=== PATIENT | female | born 1965 | race African-American/Black ===

== ENCOUNTER 2016-06-09 14:31 | Emergency (ER) | payer OTHER ==
[2016-06-09 14:49] VITALS: BP 150/77; PULSE 93; TEMP 98; BMI 51.0
--- NOTE | 2016-06-09 14:52 | PDOC ---
Rapid Medical Evaluation Chief Complaint: Injury Medical Evaluation: Allergies Allergy/AdvReac Type Severity Reaction Status Date / Time Penicillins Allergy UNKNOWN Verified 09/08/15 19:38 06/09/16 14:47 Inversion injury to right ankle last PM- was jumping and fell- took Tylenol with no relief. Has been using Ice and vijay Wrap,. Swelling and pain- no previous injury. Hx of Tubal Ligation- 12/28 pain, VSS 06/09/16 14:50 06/09/16 14:51 06/09/16 14:52
--- NOTE | 2016-06-09 15:43 | PDOC ---
History of Present Illness - General Chief Complaint: Injury Stated Complaint: RIGHT ANKLE INJURY Time Seen by Provider: 06/09/16 15:29 - History of Present Illness Initial Comments: 06/09/16 15:43 CHIEF COMPLAINT: Ankle injury HISTORY OF PRESENT ILLNESS: This is a 51 year old female with a history of HTN, hypercholesterolemia, asthma, and GERD who presents complaining of right ankle pain and swelling after she jumped and inverted her ankle yesterday. Some relief with Tylenol. Limited weight-bearing. REVIEW OF SYSTEMS: GENERAL/CONSTITUTIONAL: No fever or chills. No weakness. No weight change. HEAD, EYES, EARS, NOSE AND THROAT: No change in vision. No ear pain or discharge. No sore throat. CARDIOVASCULAR: No chest pain or palpitations. RESPIRATORY: No cough, wheezing, or shortness of breath. MUSCULOSKELETAL: See HPI. SKIN: No rash or easy bruising. NEUROLOGIC: No headache, vertigo, loss of consciousness, or loss of sensation. ALLERGIC/IMMUNOLOGIC: No hives or skin allergy. No latex allergy. PHYSICAL EXAM: GENERAL: The patient is awake, alert, and fully oriented, in no acute distress. ENT: Pupils equal, round and reactive to light, extraocular movements intact, sclera anicteric, conjunctiva clear. Neck supple. LUNGS: Clear to auscultation bilaterally. Normal excursion. No respiratory distress or use of accessory muscles. CV: RRR, S1/S2, no MRG. Cap refill < 2 sec. ABDOMEN: Soft, non-distended, non-tender. EXTREMITIES: Edema and tenderness at right medial malleolus. NEUROLOGICAL: Normal speech. CN II-XII grossly intact. PSYCH: Normal mood, normal affect. SKIN: Warm, dry, normal turgor, no rashes or lesions noted. Past History - Past Medical History Allergies/Adverse Reactions: Allergies Allergy/AdvReac Type Severity Reaction Status Date / Time Penicillins Allergy UNKNOWN Verified 06/09/16 14:49 Home Medications: Ambulatory Orders Aspirin [ASA -] 81 mg PO DAILY 05/26/14 Atorvastatin Ca [Lipitor] 10 mg PO HS 05/26/14 Esomeprazole Mag Trihydrate [Nexium] 20 mg PO DAILY 05/26/14 Lisinopril [Prinivil] 25 mg PO DAILY 05/26/14 Montelukast Na [Singulair -] 10 mg PO HS 05/26/14 Albuterol Sulfate Inhaler - [Ventolin HFA Inhaler -] 2 inh PO Q4H #1 inh Baclofen 10 mg PO ASDIR 06/09/16 Gabapentin 300 mg PO ASDIR 06/09/16 Metformin HCl 500 mg PO ASDIR 06/09/16 Metolazone 5 mg PO ASDIR 06/09/16 Naproxen [Naprosyn -] 500 mg PO BID #14 tablet 06/09/16 Omeprazole 20 mg PO ASDIR 06/09/16 Asthma: Yes Diabetes: Yes GI Disorders: Yes (ACID REFLUX) HTN: Yes Hypercholesterolemia: Yes Suicide Attempt (Hx): No - Immunization History Td Vaccination: Yes Immunization Up to Date: Yes - Psycho/Social/Smoking Cessation Hx Anxiety: No Suicidal Ideation: No Smoking Status: No Smoking History: Never smoked Years of Tobacco Use: 0 Have you smoked in the past 12 months: No Number of Cigarettes Smoked Daily: 0 Cigars Per Day: 0 Hx Alcohol Use: No Drug/Substance Use Hx: No Substance Use Type: None Hx Substance Use Treatment: No *Physical Exam - Vital Signs Last Vital Signs Temp Pulse Resp BP Pulse Ox 98.0 F 93 H 20 150/77 99 06/09/16 14:44 06/09/16 14:44 06/09/16 14:44 06/09/16 14:44 06/09/16 14:44 Medical Decision Making - Medical Decision Making 06/09/16 16:07 A/P: 51 year old female with right ankle injury, sprain vs. fracture. 1. Naproxen 500mg PO 2. Ankle/foot xray 3. Splint/crutches 06/09/16 16:31 Xray reviewed: bimalleolar swelling with slightly widened mortise; also noted on prior xray of 08/2015. No gross fracture identified. *DC/Admit/Observation/Transfer Diagnosis at time of Disposition: Ankle sprain Qualifiers: Encounter type: initial encounter Involved ligament of ankle: unspecified ligament Laterality: right Qualified Code(s): S93.401A - Sprain of unspecified ligament of right ankle, initial encounter - Discharge Dispostion Disposition: HOME Condition at time of disposition: Stable Admit: No - Referrals Referrals: Sal Ruiz MD [Staff Physician] - Call tomorrow - Patient Instructions Printed Discharge Instructions: DI for Ankle Sprain Additional Instructions: -Rest with your foot elevated above the level of your heart -Apply ice for 15 minutes at a time at least 5 times daily -Take Naproxen as prescribed for pain and inflammation -Use crutches and limit weight-bearing -Follow up with the orthopedist (referral enclose) -Return here for any new or concerning symptoms
[2016-06-09] MEDS ORDERED: NAPROXEN 500 MG TABLET (FP) PO ONE (15:44)
[2016-06-09] MEDS ORDERED: NAPROXEN 500 MG TABLET (FP) ONE (15:49)
[2016-06-09] MEDS ORDERED: OXYCODONE/APAP 5/325MG COMBO TABLET PO ONE (16:34)
[2016-06-09] MEDS ORDERED: OXYCODONE/APAP 5/325MG COMBO TABLET ONE (16:45)
== END 2016-06-09 16:55 | disposition home or self-care (01) ==
LOC: JERFT 14:31 → JER 14:31 → JERFT 16:55
DX: S93.401A Sprain of unspecified ligament of right ankle, initial encounter (principal); X58.XXXA Exposure to other specified factors, initial encounter; Y93.39 Activity, other involving climbing, rappelling and jumping off; Y92.9 Unspecified place or not applicable
CPT/HCPCS: 73610-TC-RT; 73630-TC-RT; 99281-25

== ENCOUNTER 2016-11-15 11:21 | Emergency (ER) | payer OTHER ==
[2016-11-15 11:29] VITALS: BP 143/94; PULSE 92; TEMP 98; BMI 51.0
[2016-11-15] MEDS ORDERED: KETOROLAC TROMETHAMINE 60 MG/2 ML VIAL IM ONE (13:10)
[2016-11-15] MEDS ORDERED: KETOROLAC TROMETHAMINE 60 MG/2 ML VIAL ONE (13:13)
--- NOTE | 2016-11-15 13:18 | PDOC ---
History of Present Illness - General Chief Complaint: Pain Stated Complaint: INJURY Time Seen by Provider: 11/15/16 12:49 History Source: Patient Exam Limitations: No Limitations - History of Present Illness Initial Comments: 11/15/16 13:13 Patient was vacuuming at home, tripped and fell forward falling onto her left and right knees, states felt a pop and has worse pain and swelling on her left leg. States also banged her head on the side of the table but there was no LOC, and no significant head injury. Patient is here with significant pain to knees, she feels bilateral knees but worse on the left. , Is involved with the pain management program for chronic low back pain, takes for Percocets daily. States this pain is not from her back but this acute injury sustained to her knees. 11/15/16 13:19 11/15/16 15:07 Occurred: reports: just prior to arrival Severity: reports: moderate, severe Pain Location: reports: lower extremity (bilateral knees ) Method of Injury: Yes: direct blow, fall Modifying Factors: improves with: None Loss of Consciousness: no loss of consciousness Associated Symptoms (Fall): denies symptoms Past History - Travel Traveled outside of the country in the last 30 days: No Close contact w/someone who was outside of country & ill: No - Past Medical History Allergies/Adverse Reactions: Allergies Allergy/AdvReac Type Severity Reaction Status Date / Time Penicillins Allergy UNKNOWN Verified 11/15/16 11:29 Home Medications: Ambulatory Orders Aspirin [ASA -] 81 mg PO DAILY 05/26/14 Atorvastatin Ca [Lipitor] 10 mg PO HS 05/26/14 Esomeprazole Mag Trihydrate [Nexium] 20 mg PO DAILY 05/26/14 Lisinopril [Prinivil] 25 mg PO DAILY 05/26/14 Montelukast Na [Singulair -] 10 mg PO HS 05/26/14 Albuterol Sulfate Inhaler - [Ventolin HFA Inhaler -] 2 inh PO Q4H #1 inh Baclofen 10 mg PO ASDIR 06/09/16 Gabapentin 300 mg PO ASDIR 06/09/16 Metformin HCl 500 mg PO ASDIR 06/09/16 Metolazone 5 mg PO ASDIR 06/09/16 Naproxen [Naprosyn -] 500 mg PO BID #14 tablet 06/09/16 Omeprazole 20 mg PO ASDIR 06/09/16 Oxycodone HCl/Acetaminophen [Percocet 5-325 mg Tablet] 1 tab PO Q6H PRN #8 tablet MDD 4 06/09/16 Oxycodone HCl/Acetaminophen [Percocet 5-325 mg Tablet -] 1 - 2 tab PO Q4H PRN # 10 tablet MDD 4 11/15/16 Asthma: Yes Diabetes: Yes GI Disorders: Yes (ACID REFLUX) HTN: Yes Hypercholesterolemia: Yes Suicide Attempt (Hx): No - Immunization History Td Vaccination: Yes Immunization Up to Date: Yes - Psycho/Social/Smoking Cessation Hx Anxiety: No Suicidal Ideation: No Smoking Status: No Smoking History: Never smoked Years of Tobacco Use: 0 Have you smoked in the past 12 months: No Number of Cigarettes Smoked Daily: 0 Cigars Per Day: 0 Information on smoking cessation initiated: No Hx Alcohol Use: No Drug/Substance Use Hx: No Substance Use Type: None Hx Substance Use Treatment: No Trauma Specific PMHX - Complaint Specific PMHX Back Injury: No Neck Injury: No Review of Systems - Review of Systems Able to Perform ROS?: Yes Is the patient limited Chadian proficient: Yes Constitutional: Yes: Symptoms Reported, See HPI, Malaise HEENTM: Yes: Symptoms Reported Musculoskeletal: Yes: Symptoms Reported, See HPI, Joint Pain, Joint Swelling ( left nee ) Neurological: Yes: Symptoms reported, See HPI All Other Systems: Reviewed and Negative *Physical Exam - Vital Signs Last Vital Signs Temp Pulse Resp BP Pulse Ox 98 F 92 H 18 143/94 100 11/15/16 11:27 11/15/16 11:27 11/15/16 11:27 11/15/16 11:27 11/15/16 11:27 - Physical Exam General Appearance: Yes: Nourished, Appropriately Dressed, Apparent Distress, Moderate Distress, Severe Distress (crying ) HEENT: positive: CAROL, Normal ENT Inspection, TMs Normal, Pharynx Normal Neck: positive: Tender, Supple Respiratory/Chest: positive: Lungs Clear, Normal Breath Sounds Musculoskeletal: positive: Normal Inspection Extremity: positive: Tender. negative: Normal Capillary Refill, Normal Range of Motion (limited range of motion secondary to exquisite pain. Unable to flex and extend knee and very painful to bear weight, left worse than right. Pulses are palpable but pain is reproduced primarily left re-tibial at the superior aspect. 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 Ruiz able to evaluate patient while in emergency department, reviewed CAT scan report, and ensured patient x-rays did not reveal fracture but had probable ligamentous injury with extensive arthritis. Will see her in his office this week and recommended elevation rest pain management and further evaluation. Medical Decision Making - Medical Decision Making 11/15/16 14:29 medicated with Toradol 60 mg IM with minimal relief. Patient with exquisite pain bilateral knees, return from x-ray which did not reveal any significant pathology except possible pretibial spinal fracture indicating a questionable ACL injury. Patient's pain is out of proportion to x-ray reports therefore will obtain CAT scan of left knee to rule out a tibial plateau fracture or other injury. Patient given Percocet and sent for CAT scan *DC/Admit/Observation/Transfer Diagnosis at time of Disposition: Knee pain, chronic Qualifiers: Laterality: bilateral Qualified Code(s): M25.561 - Pain in right knee; M25.562 - Pain in left knee; G89.29 - Other chronic pain - Discharge Dispostion Disposition: HOME Condition at time of disposition: Stable Admit: No - Referrals Referrals: Sal Ruiz MD [Staff Physician] - - Patient Instructions Printed Discharge Instructions: DI for Knee Pain Additional Instructions: Rest, ice to area on and off for 15 minutes 4-6 times a day Avoid heavy lifting or exercise until pain and swelling is resolved or until further directed Keep area highly elevated to reduce swelling Use splints/Jack wrap as directed Followup with orthopedist in one to 2 days - call for appointment next few days if significantly improved may wait one week for followup with orthopedist May use ibuprofen 2-200 mg tablets every 6 hours as needed for pain May use Percocet for severe pain - Post Discharge Activity Work/School Note: Back to Work
--- NOTE | 2016-11-15 22:00 | CONS ---
ORTHOPEDIC EMERGENCY ROOM CONSULTATION/[facility] DATE OF CONSULTATION: 11/15/2016 HISTORY: Patient is a 51-year-old female who slipped and fell at home, injuring her right knee today, complaining of difficulty ambulating. Prior to the fall, the patient was told that she had significant arthritis in both her knees by her PMD, but really has done nothing about them. PHYSICAL EXAMINATION: General: The patient is overweight. Extremities: As far as her knee is concerned, she has no effusion, no ecchymosis. Good stability to varus and valgus stress. There is negative Anni, pivot shift, anterior and posterior drawer. She has some patellar facet tenderness and is able to straight leg raise. No defects in the extensor mechanism. She is neurovascularly intact. She does have significant pain with flexion and extension. DIAGNOSTICS: X-rays, which I reviewed today from the emergency room, including the CT scan which was read by the radiologist potentially of a fracture, to my evaluation failed to show any fracture, but significant diffuse arthritis throughout. No fracture, dislocation, lytic or blastic lesions. IMPRESSION: Significant contusion superimposed on preexisting severe degenerative joint disease in bilateral knees in an otherwise relatively healthy, but obese 51-year-old female. PLAN: RICE, antiinflammatories. Follow up in my office where we can consider treatment for arthritis at a later date and potentially therapy, injections, and at some point total knee replacement. JOHNATHAN CALLAHAN M.D. [id number]
== END 2016-11-15 16:21 | disposition home or self-care (01) ==
LOC: JERFT 11:21
DX: S09.8XXA Other specified injuries of head, initial encounter (principal); M25.561 Pain in right knee; M25.562 Pain in left knee; W18.09XA Striking against other object with subsequent fall, initial encounter; Y93.E3 Activity, vacuuming; Y92.038 Other place in apartment as the place of occurrence of the external cause
CPT/HCPCS: 73562-TC-LT; 73562-TC-RT; 73700-TC-RT; 99281-25

== ENCOUNTER 2018-04-24 21:49 | Emergency (ER) | payer OTHER ==
[2018-04-24] MEDS ORDERED: IBUPROFEN 600 MG TABLET (FP) PO ONE ×3 (21:59→23:48)
--- NOTE | 2018-04-24 21:59 | PDOC ---
Rapid Medical Evaluation Time Seen by Provider: 04/24/18 21:55 Medical Evaluation: Allergies Allergy/AdvReac Type Severity Reaction Status Date / Time Penicillins Allergy UNKNOWN Verified 11/15/16 11:29 04/24/18 21:58 chief complaint: right sided chest pain since today with nausea. Reports pain in right chest radiating under right breast. worse with moving. Denies shortness of breath or dizziness PE: + tenderness in right chest crying in triage even clear lungs Plan ekg and analgesia
[2018-04-24 22:10] VITALS: BP 124/96; PULSE 103; TEMP 98.1; BMI 47.2
[2018-04-25] MEDS ORDERED: FAMOTIDINE 20 MG/50 ML IVPB 20 MG/50 ML MG IVPB ONE ×2 (00:03→00:47)
[2018-04-25] MEDS ORDERED: ONDANSETRON 4 MG/2 ML VIAL IVPB ONE (00:03)
[2018-04-25] MEDS ORDERED: MAG HYDROX/AL HYDROX/SIMETH 30 ML UNIT-DOSE CUP PO ONE (00:26)
--- NOTE | 2018-04-25 00:29 | PDOC ---
History of Present Illness - General Chief Complaint: Chest Pain Stated Complaint: CHEST HURTING Time Seen by Provider: 04/24/18 21:55 History Source: Patient Exam Limitations: No Limitations - History of Present Illness Initial Comments: 04/25/18 00:27 Pt is a 52yo F with PMH of Asthma, HTN, DM, HLD, GERD presenting to ED with complaints of chest pain, nausea and one episode of emesis yesterday. Pt states the pain is in the middle of her chest, comes and goes, feels like a burning, sharp pain, radiates to the R breast and upper abdomen. Associated with nausea. She denies diarrhea, constipation, fevers, chills, congestion, sore throat, sob , palpitations. She and her son went to [employer] 3 days ago and her son has similar symptoms today. Last BM yesterday. No recent travel, no abdominal surgeries. Allergies: PCN Past History - Past Medical History Allergies/Adverse Reactions: Allergies Allergy/AdvReac Type Severity Reaction Status Date / Time Penicillins Allergy UNKNOWN Verified 04/24/18 21:58 Home Medications: Ambulatory Orders Aspirin [ASA -] 81 mg PO DAILY 05/26/14 Atorvastatin Ca [Lipitor] 10 mg PO HS 05/26/14 Esomeprazole Mag Trihydrate [Nexium] 20 mg PO DAILY 05/26/14 Lisinopril [Prinivil] 25 mg PO DAILY 05/26/14 Montelukast Na [Singulair -] 10 mg PO HS 05/26/14 Albuterol Sulfate Inhaler - [Ventolin HFA Inhaler -] 2 inh PO Q4H #1 inh Baclofen 10 mg PO ASDIR 06/09/16 Gabapentin 300 mg PO ASDIR 06/09/16 Metolazone 5 mg PO ASDIR 06/09/16 Naproxen [Naprosyn -] 500 mg PO BID #14 tablet 06/09/16 Omeprazole 20 mg PO ASDIR 06/09/16 Oxycodone HCl/Acetaminophen [Percocet 5-325 mg Tablet] 1 tab PO Q6H PRN #8 tablet MDD 4 06/09/16 metFORMIN HCL [Metformin HCl] 500 mg PO ASDIR 06/09/16 Oxycodone HCl/Acetaminophen [Percocet 5-325 mg Tablet] 1 - 2 tab PO Q4H #7 tablet MDD 4 11/15/16 Dicyclomine HCl [Bentyl -] 10 mg PO DAILY #5 capsule 04/25/18 Ondansetron [Zofran -] 4 mg PO BID #10 tablet 04/25/18 Asthma: Yes COPD: No Diabetes: Yes GI Disorders: Yes (ACID REFLUX) HTN: Yes Hypercholesterolemia: Yes - Immunization History Td Vaccination: Yes Immunization Up to Date: Yes - Suicide/Smoking/Psychosocial Hx Smoking Status: No Smoking History: Never smoked Years of Tobacco Use: 0 Have you smoked in the past 12 months: No Number of Cigarettes Smoked Daily: 0 Cigars Per Day: 0 Hx Alcohol Use: No Drug/Substance Use Hx: No Substance Use Type: None Hx Substance Use Treatment: No *Physical Exam - Vital Signs Last Vital Signs Temp Pulse Resp BP Pulse Ox 98.1 F 103 H 18 124/96 100 04/24/18 21:55 04/24/18 21:55 04/24/18 21:55 04/24/18 21:55 04/24/18 21:55 Moderate Sedation - Procedure Monitoring Vital Signs: Procedure Monitoring Vital Signs Temperature 98.1 F 04/24/18 21:55 Pulse Rate 103 H 04/24/18 21:55 Respiratory Rate 18 04/24/18 21:55 Blood Pressure 124/96 04/24/18 21:55 O2 Sat by Pulse Oximetry (%) 100 04/24/18 21:55 ED Treatment Course - LABORATORY CBC & Chemistry Diagram: 04/25/18 00:22 04/25/18 00:22 - RADIOLOGY Radiology Studies Ordered: Category Date Time Status CHEST PA & LAT [RAD] Stat Radiology 04/25/18 00:02 Ordered - Medications Given in the ED: ED Medications Discontinued Medications Generic Name Dose Route Start Last Admin Trade Name Freq PRN Reason Stop Dose Admin Ibuprofen 600 mg 04/24/18 22:00 04/24/18 23:58 Motrin - PO 04/24/18 22:01 600 mg ONCE ONE Administration Medical Decision Making - Medical Decision Making 04/25/18 02:09 Pt is a 52yo F with PMH of Asthma, HTN, DM, HLD, GERD presenting to ED with complaints of chest pain, nausea and one episode of emesis yesterday. Pt states the pain is in the middle of her chest, comes and goes, feels like a burning, sharp pain, radiates to the R breast and upper abdomen. Associated with nausea. She denies diarrhea, constipation, fevers, chills, congestion, sore throat, sob , palpitations. She and her son went to [employer] 3 days ago and her son has similar symptoms today. Last BM yesterday. No recent travel, no abdominal surgeries. Vitals: slight tachycardia otherwise wnl PE: epigastic tenderness>RUQ tenderness, positive quiñonez's sign, substernal tenderness. Normal heart sounds, lungs cta. ddx includes but not limited to gastritis, pancreatitis, cholecystitis, gastritis, ACS -cbc, cmp, lipase, troponin ordered. -EKG done in triage. -iv fluids, zofran, pepcid, maalox, bentyl, IV tylenol. -U/S. -Labs wnl. ALkP slightly elevated. Normal lipase, normal white count. Pt states feeling better. Will give Rx for bentyl and zofran. U/S negative for cholecystitis or choledocolithiasis. Fatty liver. PT most likely has viral gastritis or food poisoning. Has been tolerating PO at home, is afebrile, symptoms well controlled. Will DC home. Given return precautions. *DC/Admit/Observation/Transfer Diagnosis at time of Disposition: Nausea, Epigastric abdominal pain Chest pain Qualifiers: Chest pain type: unspecified Qualified Code(s): R07.9 - Chest pain, unspecified - Discharge Dispostion Disposition: HOME Condition at time of disposition: Improved Decision to Admit order: No - Prescriptions Prescriptions: Dicyclomine HCl [Bentyl -] 10 mg PO DAILY #5 capsule Ondansetron [Zofran -] 4 mg PO BID #10 tablet - Referrals Referrals: Micaela Gross MD [Primary Care Provider] - - Patient Instructions Printed Discharge Instructions: DI for Abdominal Pain-Adult, DI for Atypical Chest Pain Additional Instructions: You were seen in the emergency room today for abdominal pain, chest pain and nausea. The blood work was normal. You most likely have a stomach virus or food poisoning. Please keep yourself well hydrated. You can take over the counter Maalox to help with the spams. Take the Nexium as directed. I would recommend staying away from solid foods. Stick to a liquid diet and if you tolerate that then move on to soft solids like bananas, applesauce, toast and rice. Two prescriptions were sent to your pharmacy. One is Zofran (for nausea) and one is Bentyl to help with the esophogeal spasms. Take as directed. Make sure to visit your primary care doctor sometime this week. Come back to the emergency room if pain gets worse, you start vomiting blood, there is blood in the stool, you develop fever, you are unable to drink or eat anything or if any new concerning symptom develops. Thank you - Post Discharge Activity
[2018-04-25] MEDS ORDERED: ONDANSETRON 4 MG/2 ML VIAL ONE (00:47)
[2018-04-25] MEDS ORDERED: MAG HYDROX/AL HYDROX/SIMETH 30 ML UNIT-DOSE CUP ONE (00:47)
[2018-04-25 00:49] LABS: BASO % 1.4 % (0-2.0); EOS % 3.1 % (0-4.5); HEMATOCRIT 36.2 % (32.4-45.2); HEMOGLOBIN 12.1 GM/dL (10.7-15.3); LYMPH % 30.4 % (8-40); MCH 28.2 pg (25.7-33.7); MCHC 33.3 g/dl (32.0-36.0); MEAN CELL VOLUME 84.7 fl (80-96); MEAN PLT VOLUME 8.4 fl (7.5-11.1); MONO % 7.3 % (3.8-10.2); NEUT % 57.8 % (42.8-82.8); PLATELET COUNT 423 K/MM3 (134-434); RBC 4.28 M/mm3 (3.60-5.2); RDW 15.5 % (11.6-15.6); WHITE BLOOD COUNT 8.3 K/mm3 (4.0-10.0)
[2018-04-25] MEDS ORDERED: ACETAMINOPHEN 1000 MG/100 ML VIAL (NON FORMULARY) IVPB ONE (01:04)
[2018-04-25 01:09] LABS: INR 1.18 (0.83-1.09); PROTHROMBIN TIME (PATIENT) 13.9 SEC (9.7-13.0)
[2018-04-25] MEDS ORDERED: DICYCLOMINE HCL 10 MG CAPSULE PO ONE (01:10)
--- NOTE | 2018-04-25 01:10 | PDOC ---
Attending Attestation - HPI HPI: 04/25/18 01:28 The patient is a 52 year old female, with a significant past medical history of Asthma, HTN, DM, HLD, GERD , who presents to the emergency department with, spastic epigastric pain with associated nausea. She denies recent fevers, chills, headache or dizziness. She denies recent dysuria, frequency, urgency or hematuria. She denies recent chest pain or shortness of breath. Allergies: Penicillins. Primary Care Physician: Dr. Gross - Physicial Exam PE: 04/25/18 01:29 GENERAL: Well-appearing, well-nourished. No apparent distress. HEENT: Normocephalic, atraumatic. PERRL, EOM intact. CARDIOVASCULAR: Normal S1, S2. Regular rate and rhythm. PULMONARY: Clear to auscultation bilaterally. ABDOMEN: Protuberant. Reproducible epigastric and chest tenderness. Soft, non-distended. EXTREMITIES: Normal ROM in all four extremities. No gross deformities. SKIN: Warm, dry. No rash NEUROLOGICAL: No focal neurological deficits. <Aaliyah Stallings - Last Filed: 04/25/18 01:28> - Resident Resident Name: Madisyn Astudillo - ED Attending Attestation I have performed the following: I have examined & evaluated the patient, The case was reviewed & discussed with the resident, I agree w/resident's findings & plan, Exceptions are as noted - Medical Decision Making 04/25/18 18:15 pt received IVF,anti emetics d/c home 04/25/18 18:16 <Zohreh Cameron - Last Filed: 04/25/18 18:17> Attestations - Attestations 04/25/18 01:29 Documentation prepared by Aaliyah Stallings, acting as biomedical engineering technologist for Zohreh Cameron MD. <Aaliyah Stallings - Last Filed: 04/25/18 01:28>
[2018-04-25 01:24] LABS: LIPASE 96 U/L (73-393)
[2018-04-25 01:42] LABS: ALK PHOS 126 U/L (45-117); ANION GAP 9 MMOL/L (8-16); BILIRUBIN,TOTAL 0.4 mg/dL (0.2-1); BLOOD UREA NITROGEN 9 mg/dL (7-18); CALCIUM 9.5 mg/dL (8.5-10.1); CHLORIDE 99 mmol/L (98-107); CO2 27 mmol/L (21-32); GLUCOSE,RANDOM 105 mg/dL (74-106); POTASSIUM 4.1 mmol/L (3.5-5.1); SGOT/AST 29 U/L (15-37); SGPT/ALT 27 U/L (13-61); SODIUM 135 mmol/L (136-145); TOT PROT 8.6 g/dl (6.4-8.2)
[2018-04-25] MEDS ORDERED: SODIUM CHLORIDE 1,000 ML IV STA (01:47)
[2018-04-25] MEDS ORDERED: METOCLOPRAMIDE HCL 10 MG TABLET (FP) PO ONE (02:20)
[2018-04-25] MEDS ORDERED: METOCLOPRAMIDE HCL INJECTION 10 MG/2 ML VIAL ONE (02:26)
[2018-04-25] MEDS ORDERED: DICYCLOMINE HCL 10 MG CAPSULE ONE (02:26)
[2018-04-25] MEDS ORDERED: ACETAMINOPHEN INJECTION 100 ML IVPB ONE (02:27)
--- NOTE | 2018-04-25 04:51 | PDOC ---
*Physical Exam - Vital Signs Last Vital Signs Temp Pulse Resp BP Pulse Ox 98.1 F 103 H 18 124/96 100 04/24/18 21:55 04/24/18 21:55 04/24/18 21:55 04/24/18 21:55 04/24/18 21:55 ED Treatment Course - LABORATORY CBC & Chemistry Diagram: 04/25/18 00:22 04/25/18 00:22 - ADDITIONAL ORDERS Additional order review: Laboratory Results 04/25/18 04/25/18 04/25/18 00:22 00:22 00:22 PT with INR 13.90 H INR 1.18 H Sodium 135 L Potassium 4.1 Chloride 99 Carbon Dioxide 27 Anion Gap 9 BUN 9 Creatinine 1.0 Creat Clearance w eGFR 58.22 Random Glucose 105 Calcium 9.5 Total Bilirubin 0.4 AST 29 ALT 27 Alkaline Phosphatase 126 H Troponin I Cancelled < 0.02 Total Protein 8.6 H Albumin 4.0 Lipase Cancelled 96 04/25/18 00:22 RBC 4.28 MCV 84.7 MCHC 33.3 RDW 15.5 MPV 8.4 Neutrophils % 57.8 Lymphocytes % 30.4 Monocytes % 7.3 Eosinophils % 3.1 Basophils % 1.4 - Medications Given in the ED: ED Medications Discontinued Medications Generic Name Dose Route Start Last Admin Trade Name Nabeelq PRN Reason Stop Dose Admin Acetaminophen 1,000 mg 04/25/18 01:04 04/25/18 02:39 Ofirmev Injection - IVPB 04/25/18 01:05 1,000 mg ONCE ONE Administration Al Hydroxide/Mg Hydroxide 30 ml 04/25/18 00:26 04/25/18 01:20 Mylanta Oral Suspension - PO 04/25/18 00:27 30 ml ONCE ONE Administration Dicyclomine HCl 10 mg 04/25/18 01:10 04/25/18 02:38 Bentyl - PO 04/25/18 01:11 10 mg ONCE ONE Administration Famotidine/Sodium Chloride 20 mg in 50 mls @ 100 mls/hr 04/25/18 00:03 01:20 Pepcid 20 Mg Premixed Ivpb - IVPB 04/25/18 00:32 100 mls/hr ONCE ONE Administration Sodium Chloride 1,000 mls @ 1,000 mls/hr 04/25/18 01:47 04/25/18 02:22 Normal Saline - IV 04/25/18 02:46 1,000 mls/hr ASDIR STA Administration Ibuprofen 600 mg 04/24/18 22:00 04/24/18 23:58 Motrin - PO 04/24/18 22:01 600 mg ONCE ONE Administration Metoclopramide HCl 10 mg 04/25/18 02:20 04/25/18 02:38 Reglan - PO 04/25/18 02:21 10 mg ONCE ONE Administration Ondansetron HCl 4 mg 04/25/18 00:03 04/25/18 01:20 Zofran Injection IVPB 04/25/18 00:04 4 mg ONCE ONE Administration Medical Decision Making - Medical Decision Making 04/25/18 04:51 pt signed out to me awaiting labs, and us. us reviewed by me questionable stones, however read from radiology *DC/Admit/Observation/Transfer Diagnosis at time of Disposition: Nausea, Epigastric abdominal pain Chest pain Qualifiers: Chest pain type: unspecified Qualified Code(s): R07.9 - Chest pain, unspecified - Discharge Dispostion Disposition: HOME Condition at time of disposition: Improved - Prescriptions Prescriptions: Dicyclomine HCl [Bentyl -] 10 mg PO DAILY #5 capsule Ondansetron [Zofran -] 4 mg PO BID #10 tablet - Referrals Referrals: Micaela Gross MD [Primary Care Provider] - - Patient Instructions Printed Discharge Instructions: DI for Abdominal Pain-Adult, DI for Atypical Chest Pain Additional Instructions: You were seen in the emergency room today for abdominal pain, chest pain and nausea. The blood work was normal. You most likely have a stomach virus or food poisoning. Please keep yourself well hydrated. You can take over the counter Maalox to help with the spams. Take the Nexium as directed. I would recommend staying away from solid foods. Stick to a liquid diet and if you tolerate that then move on to soft solids like bananas, applesauce, toast and rice. Two prescriptions were sent to your pharmacy. One is Zofran (for nausea) and one is Bentyl to help with the esophogeal spasms. Take as directed. Make sure to visit your primary care doctor sometime this week. Come back to the emergency room if pain gets worse, you start vomiting blood, there is blood in the stool, you develop fever, you are unable to drink or eat anything or if any new concerning symptom develops. Thank you - Post Discharge Activity
--- NOTE | 2018-04-25 15:06 | EKG ---
Test Reason : Blood Pressure : / mmHG Vent. Rate : 094 BPM Atrial Rate : 094 BPM P-R Int : 144 ms QRS Dur : 086 ms QT Int : 384 ms P-R-T Axes : 045 032 007 degrees QTc Int : 480 ms POOR DATA QUALITY, INTERPRETATION MAY BE ADVERSELY AFFECTED NORMAL SINUS RHYTHM POSSIBLE LEFT ATRIAL ENLARGEMENT NONSPECIFIC T WAVE ABNORMALITY ABNORMAL ECG Confirmed by Marc Fernandez MD ([id number]) on 04/25/2018 3:05:47 PM Referred By: Confirmed By:Marc Fernandez MD
== END 2018-04-25 05:27 | disposition home or self-care (01) ==
LOC: JER 21:49
PROC: 3E0337Z Introduction of Electrolytic and Water Balance Substance into Peripheral Vein, Percutaneous Approach (ICD-10-PCS; principal; 2018-04-24)
PROC: 3E033GC Introduction of Other Therapeutic Substance into Peripheral Vein, Percutaneous Approach (ICD-10-PCS; 2018-04-24)
PROC: 3E033NZ Introduction of Analgesics, Hypnotics, Sedatives into Peripheral Vein, Percutaneous Approach (ICD-10-PCS; 2018-04-24)
DX: R07.9 Chest pain, unspecified (principal); R11.2 Nausea with vomiting, unspecified; R10.13 Epigastric pain; K21.9 Gastro-esophageal reflux disease without esophagitis; I10 Essential (primary) hypertension; E11.9 Type 2 diabetes mellitus without complications; Z79.84 Long term (current) use of oral hypoglycemic drugs; E78.5 Hyperlipidemia, unspecified; J45.909 Unspecified asthma, uncomplicated
CPT/HCPCS: 36415; 71046-TC-FY; 76705-TC; 80053; 83690; 84484; 85025; 85610; 93005; 93010; 96361; 96365; 96374; 96375; 99282-25; J0131; J7030

== ENCOUNTER 2023-11-12 08:40 | Inpatient (IN) | payer OTHER ==
[2023-11-12 08:48] VITALS: BMI 49.1
[2023-11-12] MEDS ORDERED: ALBUTEROL SO4 2.5/IPRATROPIUM 0.5 INH SOL 3 ML VIAL.NEB. NEB ONE ×3 (09:39→16:22)
[2023-11-12] MEDS ORDERED: ONDANSETRON 4 MG/2 ML VIAL ONE ×2 (09:39→16:30)
[2023-11-12 09:46] LABS: BASO % 0.8 % (0-2.0); HEMATOCRIT 39.6 % (32.4-45.2); HEMOGLOBIN 13.2 GM/dL (10.7-15.3); LYMPH % 16.1 % (8-40); MCH 29.7 pg (25.7-33.7); MCHC 33.4 g/dl (32.0-36.0); MEAN CELL VOLUME 88.9 fl (80-96); MONO % 5.2 % (3.8-10.2); NEUT % 74.9 % (42.8-82.8); PLATELET COUNT 437 10^3/uL (134-434); RBC 4.46 M/mm3 (3.60-5.2); RDW 13.9 % (11.6-15.6); WHITE BLOOD COUNT 8.9 K/mm3 (4.0-10.0)
[2023-11-12] MEDS: ONDANSETRON 4 MG/2 ML VIAL IVPUSH ONE ×3 (09:57→22:38)
[2023-11-12] MEDS: ALBUTEROL SO4 2.5/IPRATROPIUM 0.5 INH SOL 3 ML VIAL.NEB. NEB ONE ×2 (09:57→16:41)
[2023-11-12 10:09] LABS: POTASSIUM 4.4 mmol/L (3.5-5.1)
[2023-11-12 10:11] LABS: CALCIUM 9.9 mg/dL (8.5-10.1)
[2023-11-12 10:12] LABS: ALBUMIN 3.6 g/dl (3.4-5.0); BLOOD UREA NITROGEN 8.2 mg/dL (7-18)
[2023-11-12 10:15] LABS: CREATININE 0.8 mg/dL (0.55-1.3)
[2023-11-12 10:16] LABS: BILIRUBIN,TOTAL 0.3 mg/dL (0.2-1); TOT PROT 8.4 g/dl (6.4-8.2)
[2023-11-12] MEDS ORDERED: KETOROLAC TROMETHAMINE 30 MG/1 ML VIAL ONE (11:38)
[2023-11-12] MEDS: KETOROLAC TROMETHAMINE 15 MG/ML VIAL IVPUSH ONE (11:44)
[2023-11-12] MEDS ORDERED: FUROSEMIDE 40 MG/4 ML INJECTABLE VIAL ONE (11:46)
[2023-11-12] MEDS: FUROSEMIDE 40 MG/4 ML INJECTABLE VIAL IVPUSH ONE (12:07)
[2023-11-12 12:20] LABS: N-TERMINAL BNP 63.1 pg/ml (5-125)
[2023-11-12] MEDS ORDERED: DEXAMETHASONE SOD PHOSPHATE 10 MG/1 ML VIAL ONE (16:22)
[2023-11-12] MEDS ORDERED: AZITHROMYCIN IVPB 500 MG/250 ML BAG IVPB ONE (16:23)
[2023-11-12] MEDS ORDERED: oxyCODONE HCL 5 MG TABLET ONE (16:23)
[2023-11-12] MEDS: oxyCODONE HCL 5 MG TABLET PO ONE (16:40)
[2023-11-12] MEDS: DEXAMETHASONE SOD PHOSPHATE 4 MG/1 ML VIAL IVPUSH ONE (16:41)
[2023-11-12] MEDS: AZITHROMYCIN IVPB 500 MG in DEXTROSE 5%-WATER - 250 ML IVPB ONE (16:41)
[2023-11-12] MEDS ORDERED: HYDROmorphone HCL CARPU-JECT 2 MG/1 ML DISP.SYRIN ONE (19:10)
[2023-11-12] MEDS: HYDROmorphone HCl 2 MG/ML VIAL IVPUSH ONE (19:17)
[2023-11-12 20:01] LABS: EPI CELLS 11 /uL (0-25.1); HYALINE CASTS 0 /uL (0-3.1); URINE APPEARANCE CLEAR; URINE BACTERIA 586 /uL (0-1359); URINE BILIRUBIN NEGATIVE (NEGATIVE); URINE COLOR YELLOW; URINE GLUCOSE (UA) NEGATIVE (NEGATIVE); URINE KETONE NEGATIVE (NEGATIVE); URINE LEUK ESTERASE NEGATIVE (NEGATIVE); URINE NITRITE NEGATIVE (NEGATIVE); URINE PROTEIN 1+ (NEGATIVE); URINE RBC 10 /uL (0-23.9); URINE WBC 9 /uL (0-25.8)
[2023-11-12] MEDS ORDERED: CEFTRIAXONE 1 GM in DEXTROSE 5%-WATER - 100 ML IVPB ONE (20:21)
[2023-11-12] MEDS ORDERED: HYDROmorphone HCL CARPU-JECT 2 MG/1 ML DISP.SYRIN IVPUSH PRN (20:32)
[2023-11-12] MEDS ORDERED: ALBUTEROL SO4 HFA INHALER IH PRN (21:15)
[2023-11-12] MEDS ORDERED: MAGNESIUM HYDROX 2400MG/30ML ORAL SUSPENSION 30 ML CUP PO PRN (21:17)
[2023-11-12] MEDS: GABAPENTIN 300 MG CAPSULE PO SCH (22:37)
[2023-11-12] MEDS: POLYETHYLENE GLYCOL (HEALTHYLAX) 3350 17 GM PACKET PO SCH (22:37)
[2023-11-12] MEDS: ENOXAPARIN NA (PORCINE) 40 MG/0.4 ML DISP.SYRIN SQ SCH (22:37)
[2023-11-12] MEDS: MONTELUKAST NA 10 MG TABLET PO SCH (22:38)
[2023-11-12] MEDS: PANTOPRAZOLE 40 MG TABLET PO SCH (22:38)
[2023-11-12] MEDS: INSULIN ASPART SLIDING SCALE (NOVOLOG) 1 VIAL SQ SCH (22:38)
[2023-11-12] MEDS: HYDROmorphone HCL CARPU-JECT 2 MG/1 ML DISP.SYRIN IVPB SCH (22:39)
[2023-11-13] MEDS: HYDROmorphone HCL CARPU-JECT 2 MG/1 ML DISP.SYRIN IVPB SCH (02:00)
[2023-11-13] MEDS: HYDROmorphone HCL CARPU-JECT 2 MG/1 ML DISP.SYRIN IVPUSH ONE (04:27)
[2023-11-13] MEDS ORDERED: ACETAMINOPHEN 1000 MG/100 ML BAG IVPB PRN (08:09)
[2023-11-13] MEDS: ALBUTEROL SO4 0.083% IH SOL 2.5 MG/3 ML VIAL.NEB. NEB SCH (08:31)
[2023-11-13] MEDS: oxyCODONE HCL 5 MG TABLET PO PRN (08:52)
[2023-11-13 09:20] LABS: HEMATOCRIT 37.4 % (32.4-45.2); HEMOGLOBIN 12.3 GM/dL (10.7-15.3); MCH 29.4 pg (25.7-33.7); MCHC 32.9 g/dl (32.0-36.0); MEAN CELL VOLUME 89.3 fl (80-96); MEAN PLT VOLUME 7.8 fl (7.5-11.1); PLATELET COUNT 391 10^3/uL (134-434); RBC 4.19 M/mm3 (3.60-5.2); RDW 13.9 % (11.6-15.6); WHITE BLOOD COUNT 8.3 K/mm3 (4.0-10.0)
[2023-11-13] MEDS ORDERED: LISINOPRIL 20 MG TABLET PO SCH (10:00)
[2023-11-13 10:06] LABS: BLOOD UREA NITROGEN 10.2 mg/dL (7-18); CALCIUM 9.4 mg/dL (8.5-10.1)
[2023-11-13 10:07] LABS: MAGNESIUM 1.5 mg/dL (1.8-2.4)
[2023-11-13 10:09] LABS: ALBUMIN 3.5 g/dl (3.4-5.0)
[2023-11-13 10:10] LABS: CREATININE 0.7 mg/dL (0.55-1.3)
[2023-11-13 10:11] LABS: BILIRUBIN,TOTAL 0.4 mg/dL (0.2-1); TOT PROT 7.5 g/dl (6.4-8.2)
[2023-11-13 10:12] LABS: PHOSPHOROUS 3.2 mg/dL (2.5-4.9)
[2023-11-13] MEDS: HYDROCHLOROTHIAZIDE 25 MG TABLET (FP) PO SCH (11:12)
[2023-11-13] MEDS: LISINOPRIL 20 MG TABLET PO SCH (11:12)
[2023-11-13] MEDS: ASPIRIN 81 MG CHEWABLE TABLETS PO SCH (11:13)
[2023-11-13] MEDS: ALBUTEROL SO4 2.5/IPRATROPIUM 0.5 INH SOL 3 ML VIAL.NEB. NEB SCH (11:28)
[2023-11-13] MEDS: AZITHROMYCIN IVPB 500 MG/250 ML BAG IVPB SCH (11:50)
[2023-11-13] MEDS: INSULIN ASPART SLIDING SCALE (NOVOLOG) 1 VIAL SQ SCH (11:51)
[2023-11-13] MEDS: SODIUM CHLORIDE 1,000 ML IV SCH (12:06)
[2023-11-13] MEDS: MAGNESIUM 2GM/50ML STERILE WATER IVPB IVPB ONE (12:06)
[2023-11-13] MEDS: KETOROLAC TROMETHAMINE 30 MG/1 ML VIAL IVPUSH PRN (13:50)
[2023-11-13] MEDS ORDERED: KETOROLAC TROMETHAMINE 15 MG/ML VIAL IVPUSH SCH (15:00)
[2023-11-13] MEDS ORDERED: IOHEXOL (OMNIPAQUE IV) 350 MG/ML - 100 ML BOTTLE PO ONE (15:01)
[2023-11-13] MEDS: IOHEXOL (OMNIPAQUE PO) 12 MG/ML - 500 ML BOTTLE PO ONE ×2 (15:30→15:31)
[2023-11-13] MEDS: SENNOSIDES 8.6MG TABLET (FP) PO SCH (21:51)
[2023-11-13] MEDS: DOCUSATE SODIUM 100 MG CAPSULE (FP) PO SCH (21:51)
[2023-11-13] MEDS: KETOROLAC TROMETHAMINE 15 MG/ML VIAL IVPUSH SCH (23:31)
[2023-11-13] MEDS: MINERAL OIL ENEMA 133 ML ENEMA RC ONE (23:57)
[2023-11-14 09:24] LABS: BASO % 0.6 % (0-2.0); HEMATOCRIT 37.8 % (32.4-45.2); HEMOGLOBIN 12.4 GM/dL (10.7-15.3); LYMPH % 23.7 % (8-40); MCH 29.5 pg (25.7-33.7); MCHC 32.9 g/dl (32.0-36.0); MEAN CELL VOLUME 89.6 fl (80-96); MEAN PLT VOLUME 7.9 fl (7.5-11.1); MONO % 8.2 % (3.8-10.2); NEUT % 61.5 % (42.8-82.8); PLATELET COUNT 392 10^3/uL (134-434); RBC 4.22 M/mm3 (3.60-5.2); RDW 13.9 % (11.6-15.6); WHITE BLOOD COUNT 7.4 K/mm3 (4.0-10.0)
[2023-11-14 09:30] LABS: INR 1.05 (0.83-1.09); PROTHROMBIN TIME (PATIENT) 11.9 SEC (9.7-13.0)
[2023-11-14 09:46] LABS: POTASSIUM 4.1 mmol/L (3.5-5.1)
[2023-11-14 09:56] LABS: ALBUMIN 3.3 g/dl (3.4-5.0); BLOOD UREA NITROGEN 9.2 mg/dL (7-18); CALCIUM 9.3 mg/dL (8.5-10.1)
[2023-11-14 09:58] LABS: CREATININE 0.7 mg/dL (0.55-1.3)
[2023-11-14 09:59] LABS: PHOSPHOROUS 3.7 mg/dL (2.5-4.9)
[2023-11-14 10:00] LABS: BILIRUBIN,TOTAL 0.5 mg/dL (0.2-1); TOT PROT 7.2 g/dl (6.4-8.2)
[2023-11-14] MEDS: MINERAL OIL ENEMA 133 ML ENEMA RC ONE (13:06)
[2023-11-14] MEDS: BISACODYL 10 MG SUPP.RECT PR ONE (16:48)
[2023-11-14] MEDS: POLYETHYLENE GLYCOL (HEALTHYLAX) 3350 17 GM PACKET PO SCH ×2 (16:48→21:45)
[2023-11-15 10:09] LABS: BASO % 0.6 % (0-2.0); EOS % 7.2 % (0-4.5); HEMATOCRIT 37.2 % (32.4-45.2); HEMOGLOBIN 12.2 GM/dL (10.7-15.3); LYMPH % 28.8 % (8-40); MCH 29.3 pg (25.7-33.7); MCHC 32.7 g/dl (32.0-36.0); MEAN CELL VOLUME 89.6 fl (80-96); MEAN PLT VOLUME 8.2 fl (7.5-11.1); MONO % 7.4 % (3.8-10.2); PLATELET COUNT 385 10^3/uL (134-434); RBC 4.15 M/mm3 (3.60-5.2); RDW 14.2 % (11.6-15.6); WHITE BLOOD COUNT 5.4 K/mm3 (4.0-10.0)
[2023-11-15 10:16] LABS: POTASSIUM 4.2 mmol/L (3.5-5.1)
[2023-11-15 10:19] LABS: MAGNESIUM 1.7 mg/dL (1.8-2.4)
[2023-11-15 10:22] LABS: ALBUMIN 3.1 g/dl (3.4-5.0); BLOOD UREA NITROGEN 7.8 mg/dL (7-18)
[2023-11-15 10:23] LABS: CREATININE 0.6 mg/dL (0.55-1.3)
[2023-11-15 10:25] LABS: PHOSPHOROUS 3.4 mg/dL (2.5-4.9)
[2023-11-15 10:26] LABS: BILIRUBIN,TOTAL 0.4 mg/dL (0.2-1); TOT PROT 6.8 g/dl (6.4-8.2)
[2023-11-15] MEDS: PEG 3350/NA SULF BICARB CL/KCL 4000 ML SOLN.RECON PO ONE (11:50)
[2023-11-15] MEDS: ONDANSETRON 4 MG/2 ML VIAL IVPUSH ONE (17:37)
[2023-11-15] MEDS: MAGNESIUM SULF 50% (8.12 MEQ/2 ML-1 GM VIAL) IVPB ONE (18:41)
[2023-11-16] MEDS: TRIMETHOBENZAMIDE HCL 200MG/2ML INJ IM ONE (06:03)
[2023-11-16 09:26] LABS: BASO % 0.8 % (0-2.0); EOS % 7.2 % (0-4.5); HEMATOCRIT 36.9 % (32.4-45.2); HEMOGLOBIN 12.1 GM/dL (10.7-15.3); LYMPH % 34.1 % (8-40); MCH 29.7 pg (25.7-33.7); MCHC 32.7 g/dl (32.0-36.0); MEAN CELL VOLUME 90.9 fl (80-96); MEAN PLT VOLUME 7.7 fl (7.5-11.1); MONO % 7.5 % (3.8-10.2); NEUT % 50.4 % (42.8-82.8); PLATELET COUNT 360 10^3/uL (134-434); RBC 4.05 M/mm3 (3.60-5.2); RDW 13.8 % (11.6-15.6); WHITE BLOOD COUNT 5.9 K/mm3 (4.0-10.0)
[2023-11-16 09:49] LABS: POTASSIUM 4.3 mmol/L (3.5-5.1)
[2023-11-16 09:52] LABS: BLOOD UREA NITROGEN 6.4 mg/dL (7-18)
[2023-11-16 09:53] LABS: ALBUMIN 3.1 g/dl (3.4-5.0); MAGNESIUM 1.9 mg/dL (1.8-2.4)
[2023-11-16] MEDS: MINERAL OIL ENEMA 133 ML ENEMA RC ONE (09:53)
[2023-11-16 09:55] LABS: CREATININE 0.7 mg/dL (0.55-1.3)
[2023-11-16 09:57] LABS: BILIRUBIN,TOTAL 0.3 mg/dL (0.2-1); TOT PROT 6.7 g/dl (6.4-8.2)
[2023-11-16] MEDS: POLYETHYLENE GLYCOL 3350 255 GM BTL PO ONE (13:09)
[2023-11-16] MEDS: ACETAMINOPHEN 500 MG TABLET (FP) PO ONE (18:22)
[2023-11-17] MEDS: ACETAMINOPHEN 500 MG TABLET (FP) PO ONE (09:32)
[2023-11-17 09:50] LABS: HEMATOCRIT 37.9 % (32.4-45.2); HEMOGLOBIN 12.4 GM/dL (10.7-15.3); MCH 29.9 pg (25.7-33.7); MCHC 32.8 g/dl (32.0-36.0); MEAN CELL VOLUME 91.2 fl (80-96); MEAN PLT VOLUME 8.1 fl (7.5-11.1); PLATELET COUNT 382 10^3/uL (134-434); RBC 4.15 M/mm3 (3.60-5.2); RDW 13.9 % (11.6-15.6); WHITE BLOOD COUNT 6.7 K/mm3 (4.0-10.0)
[2023-11-17 10:08] LABS: POTASSIUM 4.1 mmol/L (3.5-5.1)
[2023-11-17 10:10] LABS: CALCIUM 9.5 mg/dL (8.5-10.1)
[2023-11-17 10:11] LABS: ALBUMIN 3.4 g/dl (3.4-5.0); BLOOD UREA NITROGEN 4.7 mg/dL (7-18)
[2023-11-17 10:14] LABS: CREATININE 0.6 mg/dL (0.55-1.3)
[2023-11-17 10:15] LABS: BILIRUBIN,TOTAL 0.4 mg/dL (0.2-1); TOT PROT 7.4 g/dl (6.4-8.2)
[2023-11-17 15:58] VITALS: RESP 18
[2023-11-18] MEDS: KETOROLAC TROMETHAMINE 15 MG/ML VIAL IM ONE (04:59)
[2023-11-18 09:45] LABS: BASO % 0.8 % (0-2.0); EOS % 8.8 % (0-4.5); HEMATOCRIT 36.5 % (32.4-45.2); LYMPH % 29.3 % (8-40); MCH 29.3 pg (25.7-33.7); MCHC 32.9 g/dl (32.0-36.0); MEAN CELL VOLUME 89.1 fl (80-96); MEAN PLT VOLUME 8.3 fl (7.5-11.1); MONO % 9.9 % (3.8-10.2); NEUT % 51.2 % (42.8-82.8); PLATELET COUNT 353 10^3/uL (134-434); RDW 13.4 % (11.6-15.6)
[2023-11-18 09:47] VITALS: BP 151/70; PULSE 87; TEMP 98.6
[2023-11-18 10:04] LABS: MAGNESIUM 1.5 mg/dL (1.8-2.4)
[2023-11-18 10:07] LABS: CREATININE 0.6 mg/dL (0.55-1.3)
[2023-11-18 10:09] LABS: BILIRUBIN,TOTAL 0.4 mg/dL (0.2-1); TOT PROT 6.5 g/dl (6.4-8.2)
[2023-11-18] MEDS: MAGNESIUM 2GM/50ML STERILE WATER IVPB IVPB ONE (11:33)
== END 2023-11-18 13:49 | disposition home or self-care (01) | DRG 445 ==
LOC: JER 08:40 → JERBED 16:13 → OBSVTOIN 20:27 → J5S 21:08
PROVIDERS: ADMIT Internal Medicine
DX: K80.21 Calculus of gallbladder without cholecystitis with obstruction (principal); J81.1 Chronic pulmonary edema; J98.11 Atelectasis; Z68.42 Body mass index [BMI] 45.0-49.9, adult; E66.01 Morbid (severe) obesity due to excess calories; J45.20 Mild intermittent asthma, uncomplicated; I10 Essential (primary) hypertension; E11.9 Type 2 diabetes mellitus without complications; E78.5 Hyperlipidemia, unspecified; K59.00 Constipation, unspecified; R74.01 Elevation of levels of liver transaminase levels; K21.9 Gastro-esophageal reflux disease without esophagitis
CPT/HCPCS: 0241U-QW; 36415; 71046-TC-FY; 71250-TC; 74177-TC; 76705-TC; 78226-TC; 80053; 81003; 82550; 82553; 82962; 82977; 83735; 83880; 84100; 84484; 85025; 85027; 85610; 86140; 86704; 86708; 86803; 87086; 87340; 87517; 87899; 93005; 93010; 94010; 94640; 97116-GP; 97161-GP; 99285-25; A9537; G0378; Q9967